=== PATIENT | male | born 1990 | race Caucasian/White ===

== ENCOUNTER 2018-05-29 05:05 | Emergency (ER) | payer OTHER ==
[2018-05-29] MEDS ORDERED: ONDANSETRON 4 MG (ODT) TAB ONE (05:33)
--- NOTE | 2018-05-29 05:54 | EDPHYS ---
Physician Documentation [facility] Name: Eliu Barrett Age: 27 yrs Sex: Male : 1990 Arrival Date: 05/29/2018 Time: 05:06 Bed 18 Private MD: ED Physician Javier Ruffin HPI: 05/29 05:51 This 27 yrs old Male presents to ER via EMS with complaints of gs Nausea/Vomiting/Diarrhea. 05:51 The patient presents to the emergency department with nausea, diarrhea. Onset: The gs symptoms/episode began/occurred this morning. Possible causes: bad food exposure, possibly undercooked. The symptoms are aggravated by nothing. The symptoms are alleviated by nothing. Associated signs and symptoms: Pertinent negatives: abdominal pain, fever, GI bleeding. Severity of symptoms: At their worst the symptoms were severe in the emergency department the symptoms have improved markedly. The patient has experienced similar episodes in the past, a few times. The patient has not recently seen a physician. Historical: - Allergies: 05:07 No Known Allergies; fc - Home Meds: 05:07 None [Active]; fc - PMHx: 05:07 Hypertension; fc - PSHx: 05:07 None; fc - Immunization history:: Last tetanus immunization: < 10 years ago Flu vaccine is not up to date. - Social history:: Smoking status: Patient/guardian denies using tobacco, Patient uses alcohol, occasionally. Patient/guardian denies using street drugs. - Ebola Screening: : Patient negative for fever greater than or equal to 101.5 degrees Fahrenheit, and additional compatible Ebola Virus Disease symptoms Patient denies exposure to infectious person Patient denies travel to an Ebola-affected area in the 21 days before illness onset. ROS: 05:51 Neuro: Positive for near syncope. gs 05:51 All other systems are negative. Exam: 05:51 Head/Face: Normocephalic, atraumatic. Eyes: Pupils equal round and reactive to light, gs extra-ocular motions intact. Lids and lashes normal. Conjunctiva and sclera are non-icteric and not injected. Cornea within normal limits. Periorbital areas with no swelling, redness, or edema. ENT: Nares patent. No nasal discharge, no septal abnormalities noted. Tympanic membranes are normal and external auditory canals are clear. Oropharynx with no redness, swelling, or masses, exudates, or evidence of obstruction, uvula midline. Mucous membranes moist. Neck: Trachea midline, no thyromegaly or masses palpated, and no cervical lymphadenopathy. Supple, full range of motion without nuchal rigidity, or vertebral point tenderness. No Meningismus. Chest/axilla: Normal chest wall appearance and motion. Nontender with no deformity. No lesions are appreciated. Cardiovascular: Regular rate and rhythm with a normal S1 and S2. No gallops, murmurs, or rubs. Normal PMI, no JVD. No pulse deficits. Respiratory: Lungs have equal breath sounds bilaterally, clear to auscultation and percussion. No rales, rhonchi or wheezes noted. No increased work of breathing, no retractions or nasal flaring. Abdomen/GI: Soft, non-tender, with normal bowel sounds. No distension or tympany. No guarding or rebound. No evidence of tenderness throughout. Back: No spinal tenderness. No costovertebral tenderness. Full range of motion. Skin: Warm, dry with normal turgor. Normal color with no rashes, no lesions, and no evidence of cellulitis. MS/ Extremity: Pulses equal, no cyanosis. Neurovascular intact. Full, normal range of motion. Neuro: Awake and alert, GCS 15, oriented to person, place, time, and situation. Cranial nerves II-XII grossly intact. Motor strength 5/5 in all extremities. Sensory grossly intact. Cerebellar exam normal. Normal gait. 05:51 Constitutional: The patient appears alert, awake. Vital Signs: 05:07 BP 158 / 89; Pulse 58; Resp 18; Temp 98.5(O); Pulse Ox 98% on R/A; Weight 104.33 kg fc (R); Height 6 ft. 0 in. (182.88 cm) (R); Pain 1/10; 05:45 BP 134 / 87; Pulse 57; Resp 16; Pulse Ox 100% on R/A; jb4 05:07 Body Mass Index 31.19 (104.33 kg, 182.88 cm) MDM: 05:48 Patient medically screened. 05:51 Differential diagnosis: viral gastroenteritis, gastroenteritis. Data reviewed: vital gs signs, nurses notes. Response to treatment: the patient's symptoms have markedly improved after treatment, patient is well hydrated. and as a result, I will discharge patient. Administered Medications: 05:20 Drug: Zofran 4 mg Route: PO; jb4 06:03 Follow up: Response: No adverse reaction; Nausea is decreased jb4 Disposition: 05/29/18 05:53 Discharged to Home. Impression: Diarrhea, unspecified. - Condition is Stable. - Discharge Instructions: Diarrhea, Adult. - Prescriptions for Zofran 4 mg Oral Tablet - take 1 tablet by ORAL route every 12 hours As needed; 6 tablet. - Medication Reconciliation Form, Thank You Letter, Antibiotic Education, Prescription Opioid Use form. - Follow up: Private Physician; When: 2 - 3 days; Reason: Re-evaluation by your physician. Signatures: Linsey Sam RN RN Arnie Bradley RN RN jb4 Javier Ruffin MD MD gs Corrections: (The following items were deleted from the chart) 06:03 05:53 05/29/2018 05:53 Discharged to Home. Impression: Diarrhea, unspecified. Condition jb4 is Stable. Forms are Medication Reconciliation Form, Thank You Letter, Antibiotic Education, Prescription Opioid Use. Follow up: Private Physician; When: 2 - 3 days; Reason: Re-evaluation by your physician. gs
--- NOTE | 2018-05-29 05:54 | ER ---
Nurse's Notes [facility] Name: Eliu Barrett Age: 27 yrs Sex: Male : 1990 Arrival Date: 05/29/2018 Time: 05:06 Bed 18 Private MD: Diagnosis: Diarrhea, unspecified Presentation: 05/29 05:06 Presenting complaint: Patient states: that he ate some ibarra and then soon after started fc to have nausea, vomiting and diarrhea. Then felt as if he was going to pass out. Thinks he may have food poisoning. Transition of care: patient was not received from another setting of care. Onset of symptoms was May 29, 2018 at 03:45. Risk Assessment: Do you want to hurt yourself or someone else? Patient reports no desire to harm self or others. Initial Sepsis Screen: Does the patient meet any 2 criteria? No. Patient's initial sepsis screen is negative. Does the patient have a suspected source of infection? No. Patient's initial sepsis screen is negative. Care prior to arrival: None. 05:06 Method Of Arrival: EMS: [facility] 05:06 Acuity: MIGUEL ANGEL 3 fc Historical: - Allergies: 05:07 No Known Allergies; fc - Home Meds: 05:07 None [Active]; fc - PMHx: 05:07 Hypertension; fc - PSHx: 05:07 None; fc - Immunization history:: Last tetanus immunization: < 10 years ago Flu vaccine is not up to date. - Social history:: Smoking status: Patient/guardian denies using tobacco, Patient uses alcohol, occasionally. Patient/guardian denies using street drugs. - Ebola Screening: : Patient negative for fever greater than or equal to 101.5 degrees Fahrenheit, and additional compatible Ebola Virus Disease symptoms Patient denies exposure to infectious person Patient denies travel to an Ebola-affected area in the 21 days before illness onset. Screenin:08 Abuse screen: Denies threats or abuse. Nutritional screening: No deficits noted. fc Tuberculosis screening: No symptoms or risk factors identified. Fall Risk None identified. Assessment: 05:09 General: Appears in no apparent distress. comfortable, Behavior is calm, cooperative, jb4 appropriate for age. Pain: Denies pain. Neuro: Level of Consciousness is awake, alert, obeys commands, Oriented to person, place, time, situation. Cardiovascular: Patient's skin is warm and dry. Respiratory: Airway is patent Respiratory effort is even, unlabored, Respiratory pattern is regular, symmetrical. GI: Abdomen is flat, Bowel sounds present X 4 quads. Abd is soft and non tender X 4 quads. Reports diarrhea, nausea. : No signs and/or symptoms were reported regarding the genitourinary system. EENT: No signs and/or symptoms were reported regarding the EENT system. Derm: Skin is intact, Skin is pink, warm \T\ dry. Musculoskeletal: Circulation, motion, and sensation intact. Range of motion: intact in all extremities. 06:00 Reassessment: Patient appears in no apparent distress at this time. Patient and/or jb4 family updated on plan of care and expected duration. Pain level reassessed. Patient is alert, oriented x 3, equal unlabored respirations, skin warm/dry/pink. Vital Signs: 05:07 BP 158 / 89; Pulse 58; Resp 18; Temp 98.5(O); Pulse Ox 98% on R/A; Weight 104.33 kg (R); Height 6 ft. 0 in. (182.88 cm) (R); Pain 1/10; 05:45 BP 134 / 87; Pulse 57; Resp 16; Pulse Ox 100% on R/A; jb4 05:07 Body Mass Index 31.19 (104.33 kg, 182.88 cm) ED Course: 05:06 Patient arrived in ED. 05:07 Triage completed. 05:07 Arm band placed on Patient placed in an exam room, on a stretcher. 05:08 Arnie Bradley RN is Primary Nurse. 4 05:08 Patient has correct armband on for positive identification. Bed in low position. Call light in reach. Side rails up X 1. 05:08 No provider procedures requiring assistance completed. 05:09 environmental monitoring specialist on. Pulse ox on. NIBP on. jb4 05:42 Javier Ruffin MD is Attending Physician. 05:45 Patient did not have IV access during this emergency room visit. jb4 Administered Medications: 05:20 Drug: Zofran 4 mg Route: PO; jb4 06:03 Follow up: Response: No adverse reaction; Nausea is decreased jb4 Outcome: 05:53 Discharge ordered by . 06:02 Discharged to home ambulatory. jb4 06:02 Condition: stable 06:02 Discharge instructions given to patient, Instructed on discharge instructions, follow up and referral plans. medication usage, Demonstrated understanding of instructions, follow-up care, medications, Prescriptions given X 1. 06:03 Patient left the ED. jb4 Signatures: Linsey Sam RN RN Arnie Bradley RN RN jb4 Javier Ruffin MD MD Corrections: (The following items were deleted from the chart) 05:26 05:09 GI: Abdomen is flat, Bowel sounds present X 4 quads. Abd is soft and non tender X jb4 4 quads. jb4
== END 2018-05-29 06:03 | disposition home or self-care (01) ==
LOC: ER 05:05
DX: R11.2 Nausea with vomiting, unspecified (principal); R19.7 Diarrhea, unspecified; I10 Essential (primary) hypertension
CPT/HCPCS: 99284

== ENCOUNTER 2018-12-02 04:04 | Observation (INO) | payer OTHER ==
[2018-12-02] MEDS ORDERED: KETOROLAC 30 MG/ML INJ ONE (04:40)
[2018-12-02 04:46] LABS: Absolute Lymphocytes (CBC) 2.4 K/uL (0.7-4.9); Basophils % 0.4 % (0-1.3); Hematocrit 45.8 % (39.6-49.0); MPV 6.7 fL (7.6-11.3); RBC Red Blood Cell Count 5.41 M/uL (4.33-5.43)
[2018-12-02 04:59] LABS: ALT/SGPT 41 U/L (12-78); AST/SGOT 16 U/L (15-37); Albumin 4.2 g/dL (3.4-5.0); Alkaline Phosphatase 53 U/L (45-117); BUN Blood Urea Nitrogen 13 mg/dL (7-18); Bicarbonate 26 mmol/L (21-32); Bilirubin Direct < 0.1 mg/dL (0-0.2); Bilirubin Total 0.3 mg/dL (0.2-1.0); Glucose Level 102 mg/dL (74-106); Lipase 115 U/L (73-393); Protein, Total 7.3 g/dL (6.4-8.2); Sodium Level 142 mmol/L (136-145)
--- NOTE | 2018-12-02 05:37 | ER ---
Nurse's Notes [facility] Name: Eliu Barrett Age: 28 yrs Sex: Male : 1990 Arrival Date: 12/02/2018 Time: 04:07 Bed 20 Private MD: Diagnosis: Acute appendicitis Presentation: 12/02 04:24 Presenting complaint: Patient states: he started having severe abdominal pain this bb morning at approx 0300 the pain has worsened now 6/10 pain was initially towards right upper quadrant but now is diffuse pt is nauseous but denies vomiting or diarrhea. Transition of care: patient was not received from another setting of care. Onset of symptoms was December 02, 2018 at 03:00. Risk Assessment: Do you want to hurt yourself or someone else? Patient reports no desire to harm self or others. Initial Sepsis Screen: Does the patient meet any 2 criteria? No. Patient's initial sepsis screen is negative. Does the patient have a suspected source of infection? No. Patient's initial sepsis screen is negative. Care prior to arrival: None. 04:24 Method Of Arrival: Ambulatory bb 04:24 Acuity: MIGUEL ANGEL 3 bb Historical: - Allergies: 04:26 No Known Allergies; bb - Home Meds: 04:26 None [Active]; bb - PMHx: 04:26 Hypertension; bb - PSHx: 04:26 None; bb - Immunization history:: Adult Immunizations up to date. - Social history:: Smoking status: Patient/guardian denies using tobacco, Patient uses alcohol, occasionally. - Ebola Screening: : No symptoms or risks identified at this time. Screenin:27 Abuse screen: Denies threats or abuse. Nutritional screening: No deficits noted. jd3 Tuberculosis screening: No symptoms or risk factors identified. Fall Risk Ambulatory Aid- None/Bed Rest/Nurse Assist (0 pts). Gait- Normal/Bed Rest/Wheelchair (0 pts) Mental Status- Oriented to own ability (0 pts). Total [place] Fall Scale indicates No Risk (0-24 pts). Assessment: 04:25 General: Appears in no apparent distress. uncomfortable, Behavior is calm, cooperative, jd3 appropriate for age. Pain: Complains of pain in right upper quadrant, right lower quadrant and left lower quadrant Quality of pain is described as sharp, tender. Neuro: Level of Consciousness is awake, alert, obeys commands, Oriented to person, place, time, situation. Cardiovascular: Capillary refill < 3 seconds Patient's skin is warm and dry. Respiratory: Airway is patent Respiratory effort is even, unlabored, Respiratory pattern is regular, symmetrical. GI: Abdomen is round non-distended, Bowel sounds present X 4 quads. Abd is soft X 4 quads Abdomen is tender to palpation in right upper quadrant, right lower quadrant and left lower quadrant Reports nausea, Patient currently denies constipation, diarrhea, vomiting. : No signs and/or symptoms were reported regarding the genitourinary system. EENT: No signs and/or symptoms were reported regarding the EENT system. Derm: Skin is intact, Skin is dry, Skin is normal, Skin temperature is warm. Musculoskeletal: Circulation, motion, and sensation intact. Range of motion: intact in all extremities. 05:31 Reassessment: Patient appears in no apparent distress at this time. Patient and/or jd3 family updated on plan of care and expected duration. Pain level reassessed. Patient is alert, oriented x 3, equal unlabored respirations, skin warm/dry/pink. Patient denies pain at this time. Patient states feeling better. 06:04 Reassessment: Patient appears in no apparent distress at this time. Patient and/or jd3 family updated on plan of care and expected duration. Pain level reassessed. Patient is alert, oriented x 3, equal unlabored respirations, skin warm/dry/pink. pt informed and reported understanding of need for hospitalization. report called to Surinder WILKINS. Vital Signs: 04:26 BP 162 / 89; Pulse 97; Resp 16 S; Temp 98.8(O); Pulse Ox 98% on R/A; Weight 108.86 kg bb (R); Height 5 ft. 11 in. (180.34 cm) (R); Pain 6/10; 05:30 BP 124 / 63; Pulse 83; Resp 16 S; Pulse Ox 97% on R/A; Pain 0/10; jd3 06:05 BP 132 / 68; Pulse 70; Resp 17 S; Pulse Ox 96% on R/A; Pain 1/10; jd3 04:26 Body Mass Index 33.47 (108.86 kg, 180.34 cm) ED Course: 04:07 Patient arrived in ED. ds1 04:25 Javier Ruffin MD is Attending Physician. 04:25 Landen Ward RN is Primary Nurse. jd3 04:25 Triage completed. bb 04:26 Arm band placed on Patient placed in an exam room, on a stretcher, on pulse oximetry. bb 04:28 Patient has correct armband on for positive identification. Bed in low position. Call jd3 light in reach. Side rails up X 1. Adult w/ patient. 04:39 Inserted saline lock: 20 gauge in right antecubital area, using aseptic technique. jd3 Blood collected. 04:57 CT Stone Protocol In Process Unspecified. EDCT 05:36 Arnie Paula MD is Hospitalizing Provider. 06:04 No provider procedures requiring assistance completed. Patient admitted, IV remains in jd3 place. Administered Medications: 04:48 Drug: TORadol - Ketorolac 15 mg Route: IVP; Site: right antecubital; jd3 05:31 Follow up: Response: No adverse reaction; Pain is decreased jd3 05:51 Drug: cefOXitin 1 grams Route: IVPB; Infused Over: 30 mins; Site: right antecubital; jd3 06:12 Follow up: Response: No adverse reaction; IV Status: Completed infusion; IV Intake: [id number] 05:51 Drug: NS 0.9% 1000 ml Route: IV; Rate: 150 ml/hr; Site: right antecubital; jd3 06:13 Follow up: Response: No adverse reaction; IV Status: Infusion continued upon admission jd3 Intake: 06:12 IV: 50ml; Total: 50ml. jd3 Outcome: 05:36 Decision to Hospitalize by Provider. 06:05 Admitted to Med/surg accompanied by nurse, via wheelchair, room 214, with chart, Report jd3 called to Surinder WILKINS 06:05 Condition: stable 06:05 Instructed on the need for admit, Demonstrated understanding of instructions. 06:14 Patient left the ED. jd3 Signatures: Dispatcher [facility] Nadia Rausch ds1 Lyudmila Souza, RN RN bb Javier Ruffin MD MD gs Davies, Jonathon, FRANKY RN jd3
--- NOTE | 2018-12-02 05:38 | EDPHYS ---
Physician Documentation [facility] Name: Eliu Barrett Age: 28 yrs Sex: Male : 1990 Arrival Date: 12/02/2018 Time: 04:07 Bed 20 Private MD: ED Physician Javier Ruffin HPI: 12/02 05:34 This 28 yrs old Male presents to ER via Ambulatory with complaints of gs Abdominal Pain. 05:34 The patient presents with abdominal pain in the lower abdomen. Onset: The gs symptoms/episode began/occurred yesterday, at 21:00. The symptoms do not radiate. Associated signs and symptoms: Pertinent positives: nausea. The symptoms are described as sharp. Modifying factors: The symptoms are alleviated by nothing, the symptoms are aggravated by nothing. Severity of pain: At its worst the pain was moderate in the emergency department the pain is unchanged. The patient has not experienced similar symptoms in the past. Historical: - Allergies: 04:26 No Known Allergies; bb - Home Meds: 04:26 None [Active]; bb - PMHx: 04:26 Hypertension; bb - PSHx: 04:26 None; bb - Immunization history:: Adult Immunizations up to date. - Social history:: Smoking status: Patient/guardian denies using tobacco, Patient uses alcohol, occasionally. - Ebola Screening: : No symptoms or risks identified at this time. ROS: 05:34 All other systems are negative. gs Exam: 05:34 Head/Face: Normocephalic, atraumatic. Eyes: Pupils equal round and reactive to light, gs extra-ocular motions intact. Lids and lashes normal. Conjunctiva and sclera are non-icteric and not injected. Cornea within normal limits. Periorbital areas with no swelling, redness, or edema. ENT: Nares patent. No nasal discharge, no septal abnormalities noted. Tympanic membranes are normal and external auditory canals are clear. Oropharynx with no redness, swelling, or masses, exudates, or evidence of obstruction, uvula midline. Mucous membranes moist. Neck: Trachea midline, no thyromegaly or masses palpated, and no cervical lymphadenopathy. Supple, full range of motion without nuchal rigidity, or vertebral point tenderness. No Meningismus. Chest/axilla: Normal chest wall appearance and motion. Nontender with no deformity. No lesions are appreciated. Cardiovascular: Regular rate and rhythm with a normal S1 and S2. No gallops, murmurs, or rubs. Normal PMI, no JVD. No pulse deficits. Respiratory: Lungs have equal breath sounds bilaterally, clear to auscultation and percussion. No rales, rhonchi or wheezes noted. No increased work of breathing, no retractions or nasal flaring. Back: No spinal tenderness. No costovertebral tenderness. Full range of motion. Skin: Warm, dry with normal turgor. Normal color with no rashes, no lesions, and no evidence of cellulitis. MS/ Extremity: Pulses equal, no cyanosis. Neurovascular intact. Full, normal range of motion. Neuro: Awake and alert, GCS 15, oriented to person, place, time, and situation. Cranial nerves II-XII grossly intact. Motor strength 5/5 in all extremities. Sensory grossly intact. Cerebellar exam normal. Normal gait. 05:34 Constitutional: The patient appears alert, awake. 05:34 Abdomen/GI: Palpation: moderate abdominal tenderness, in the right lower quadrant. Vital Signs: 04:26 BP 162 / 89; Pulse 97; Resp 16 S; Temp 98.8(O); Pulse Ox 98% on R/A; Weight 108.86 kg bb (R); Height 5 ft. 11 in. (180.34 cm) (R); Pain 6/10; 05:30 BP 124 / 63; Pulse 83; Resp 16 S; Pulse Ox 97% on R/A; Pain 0/10; jd3 06:05 BP 132 / 68; Pulse 70; Resp 17 S; Pulse Ox 96% on R/A; Pain 1/10; jd3 04:26 Body Mass Index 33.47 (108.86 kg, 180.34 cm) bb MDM: 04:25 Patient medically screened. 05:34 Differential diagnosis: appendicitis, bowel obstruction, non-specific abd pain. Data gs reviewed: vital signs, nurses notes, lab test result(s). Counseling: I had a detailed discussion with the patient and/or guardian regarding: the historical points, exam findings, and any diagnostic results supporting the discharge/admit diagnosis, the need for further work-up and treatment in the hospital. 12/02 04:26 Order name: Basic Metabolic Panel; Complete Time: 05:35 gs 12/02 04:26 Order name: CBC with Diff; Complete Time: 05:35 12/02 04:26 Order name: Hepatic Function; Complete Time: 05:35 12/02 04:26 Order name: Lipase; Complete Time: 05:35 12/02 04:26 Order name: Urine Microscopic Only 12/02 04:26 Order name: CT Stone Protocol 12/02 04:26 Order name: IV Saline Lock; Complete Time: 04:37 12/02 04:26 Order name: Labs collected and sent; Complete Time: 04:37 12/02 05:37 Order name: NPO; Complete Time: 05:51 12/02 05:55 Order name: NPO EDMS Administered Medications: 04:48 Drug: TORadol - Ketorolac 15 mg Route: IVP; Site: right antecubital; jd3 05:31 Follow up: Response: No adverse reaction; Pain is decreased jd3 05:51 Drug: cefOXitin 1 grams Route: IVPB; Infused Over: 30 mins; Site: right antecubital; jd3 06:12 Follow up: Response: No adverse reaction; IV Status: Completed infusion; IV Intake: [id number] 05:51 Drug: NS 0.9% 1000 ml Route: IV; Rate: 150 ml/hr; Site: right antecubital; jd3 06:13 Follow up: Response: No adverse reaction; IV Status: Infusion continued upon admission jd3 Disposition: 12/02/18 05:36 Hospitalization ordered by Arnie Paula for Inpatient Admission. Preliminary diagnosis is Acute appendicitis. - Bed requested for Telemetry/MedSurg (Inpatient). - Status is Inpatient Admission. jd3 - Condition is Stable. - Problem is new. - Symptoms are unchanged. UTI on Admission? No Signatures: Dispatcher [employer] [facility] Myranda Ashby RN RN mw Ballard, Brenda, RN RN bb Starr, Gregory, MD MD gs Davies, Jonathon, RN RN jd3 Corrections: (The following items were deleted from the chart) 05:57 05:36 Hospitalization Ordered by Arnie Paula MD for Inpatient Admission. Preliminary diagnosis is Acute appendicitis. Bed requested for Telemetry/MedSurg (Inpatient). Status is Inpatient Admission. Condition is Stable. Problem is new. Symptoms are unchanged. UTI on Admission? No. gs 06:14 05:57 12/02/2018 05:36 Hospitalization Ordered by Arnie Paula MD for Inpatient jd3 Admission. Preliminary diagnosis is Acute appendicitis. Bed requested for Telemetry/MedSurg (Inpatient). Status is Inpatient Admission. Condition is Stable. Problem is new. Symptoms are unchanged. UTI on Admission? No. mw
[2018-12-02] MEDS ORDERED: NA CHLORIDE 0.9% 1,000 ML ONE (05:41)
[2018-12-02] MEDS ORDERED: CEFOXITIN SODIUM 1 GM/VIAL ONE (05:41)
[2018-12-02] MEDS ORDERED: NA CHLORIDE 0.9% 50 ML IV ONE (05:41)
[2018-12-02] MEDS ORDERED: CEFOXITIN SODIUM 1 GM/VIAL IVPB SCH (06:00)
[2018-12-02] MEDS: D5 0.45 NS 1,000 ML IV SCH ×3 (08:20→22:10)
--- NOTE | 2018-12-02 09:43 | RAD REPORT ---
EXAM DESCRIPTION: CT - Stone Protocol - 12/02/2018 4:55 am CLINICAL HISTORY: Abdominal pain. COMPARISON: None. TECHNIQUE: Axial unenhanced CT imaging of the abdomen and pelvis performed. Reformatted coronal and sagittal images reviewed. A dose reduction technique was utilized with automated exposure control according to patient size. FINDINGS: Heart is normal in size. Clear lung bases. Liver is enlarged to approximately 20 cm. Normal attenuation. No mass or biliary dilatation. Normal g allbladder, spleen, pancreas, adrenal glands, and kidneys. Coronary aorta and inferior vena cava. No adenopathy. Normal stomach. Small bowel loops appear normal. The appendix is dilated to 1.9 cm in the right lower quadrant and along the right hemipelvis with pericholecystic edema. Normal colon. There are a few enlarged right lower quadrant lymph nodes up to 1.3 cm in short axis. No free air. No ascites. The bladder and prostate appear normal. No pelvic free fluid. There is mild degenerative changes in the lower thoracic spine. No subluxation. Intact bony pelvis. N ormal hips. IMPRESSION: 1. Acute appendicitis without evidence of abscess or free air. Mild associated adenopath y. 2. Hepatomegaly. Electronically signed by: Daisy Tai DO 12/02/2018 5:16 AM CDT Due to temporary technical issues with the PACS/Fluency reporting system, reports are being signed by the in house radiologist as a courtesy to ensure prompt reporting. The interpreting radiologist is f ully responsible for the content of the report.
[2018-12-02] MEDS ORDERED: ONDANSETRON 4 MG/2 ML VIAL IV PRN (09:59)
[2018-12-02] MEDS ORDERED: MORPHINE 4 MG/ML SYR IV PRN (09:59)
[2018-12-02 10:41] VITALS: BMI 33.5
[2018-12-02] MEDS ORDERED: CEFOXITIN/SWI 1gm 1 GM/10 ML SYR IV SCH ×2 (12:00→17:00)
[2018-12-02] MEDS ORDERED: Ringers Lactate 1,000 ML IV ONE ×2 (13:16→14:43)
[2018-12-02] MEDS ORDERED: FENTANYL CITR 100 MCG/2 ML ONE ×2 (13:21→14:50)
[2018-12-02] MEDS ORDERED: PROPOFOL 200 MG/20 ML VIAL IV ONE (13:22)
[2018-12-02] MEDS ORDERED: MIDAZOLAM HCL 2 MG/2 ML INJ ONE (13:22)
[2018-12-02] MEDS ORDERED: LIDOCAINE 1% MPF 5 ML VIAL ONE (13:22)
[2018-12-02] MEDS ORDERED: ONDANSETRON 4 MG/2 ML VIAL ONE (13:25)
[2018-12-02] MEDS ORDERED: ROCURONIUM 50 MG/5 ML VIAL IV ONE ×2 (13:27→14:40)
[2018-12-02] MEDS ORDERED: GLYCOPYRROLATE 0.2 MG/ML SYR ONE (14:53)
[2018-12-02] MEDS ORDERED: NEOSTIGMINE 1 MG/ML -10 ML VIAL ONE (14:54)
--- NOTE | 2018-12-02 15:06 | P.OP ---
Preoperative diagnosis: Acute abdomen with appendicitis Postoperative diagnosis: Acute abdomen with appendicitis Primary procedure: Laparoscopic appendectomy Anesthesia: General Estimated blood loss: Less than 10 cc Specimen: 1 appendix Operative Technique: The patient brought the operating room placed supine on the table. After the induction of adequate general endotracheal anesthesia, the area the abdomen is prepped with a DuraPrep solution, and he was draped in usual aseptic manner. A subumbilical incision was made. This brought down through the skin and subcutaneous tissue. The Visiport was used to enter the peritoneal cavity and created pneumoperitoneum to approximately 12 mm of mercury. Under direct vision a 5 mm trocar was placed in the right upper quadrant and another in the lower midline the patient was now placed in a marked Trendelenburg and rolled to the left. We could visualize right lower quadrant. We could see an inflammatory process at risk contained by the omentum. Dementia wheeze gentle the omentum was gently peeled off this area revealing an acutely inflamed appendix. It was identified for its full length. At the appendix junction with the cecum the appendix was elevated. A window was made into the mesentery of the appendix. We were now able to pass a linear Stapler after converting the 10 to a 12 mm trocar at the [facility]. The linear Stapler was placed across the base the appendix and fired. A vascular reload was now placed across the base of the mesentery to the appendix. The cyst was fired as well. O suture lines were inspected adequate hemostasis was ensured. This pus was now placed into an Endo-Catch, and brought out through the umbilical trocar site. It was inspected to ensure adequate hemostasis. The right lower quadrant was lightly irrigated until the effluent was clear. The patient was returned to the neutral position on the OR table. The umbilical trocar site was approximated using the Endo Close an absorbable suture. 2 surgeons were placed.. A secure closure having been obtained, the pneumoperitoneum was now collapsed after having done a TA PP blocked of the anterior abdominal wall. At this point the pneumoperitoneum was now collapsed, the trocars removed, the sutures tied. Lexii were applied to the skin. He was in a stable condition when sent to the recovery room. Needle sponge instrument count were correct. Complications: None Transferred to: Recovery Room Condition: Good
--- NOTE | 2018-12-02 15:08 | P.HP ---
Date of Service: 12/02/18 PC: This 28-year-old male presents emergency room with severe right lower quadrant abdominal pain for diagnosis and treatment. HPC: These is been experiencing right lower abdominal pain for the hr prior to his presentation to the ER. Described as severe. Hurt when he walked. PMH: Negative PSHx: Negative SOC: No known allergies SYS REVIEW: No cough, wheeze, shortness of breath. No chest pain or palpitations. Denies any urinary complaints O/E actual room awake alert stable obviously uncomfortable HEENT: Not jaundiced Chest: Chest movement equal bilaterally ABD: Tender with guarding in the right lower quadrant LOCO: Intact DATA: Elevated white cell count, CT scan supports clinical diagnosis of acute abdomen IMPRESSION: Acute abdomen with appendicitis PLAN: I will take to the operating room for laparoscopic appendectomy. The risks of this procedure have been discussed. The possibility of bleeding, infection, injury to bowel and surrounding structures were outlined. The possible need for an open and/or further surgeries and procedures was described. Abscess formation and other complications were explained. He understands and wants us to proceed.
[2018-12-02] MEDS ORDERED: MEPERIDINE HCL 25 MG/0.5 ML ONE (15:09)
[2018-12-02] MEDS: HYDROMORPHONE HCL 1 MG/ML INJ ONE ×2 (15:15→15:20)
[2018-12-02] MEDS ORDERED: HYDROMORPHONE HCL 1 MG/ML INJ ONE (15:34)
[2018-12-02] MEDS: HYDROCODONE/APAP 7.5/325 MG TAB PO PRN (18:07)
[2018-12-02 22:20] VITALS: O2SAT 94
[2018-12-03] MEDS: HYDROCODONE/APAP 7.5/325 MG TAB PO PRN ×3 (00:58→15:02)
[2018-12-03] MEDS: CEFOXITIN/SWI 1gm 1 GM/10 ML SYR IVP SCH ×2 (00:58→10:16)
[2018-12-03] MEDS: D5 0.45 NS 1,000 ML IV SCH ×2 (05:39→14:00)
[2018-12-03 14:50] VITALS: BP 129/60; TEMP 97.6
== END 2018-12-03 15:13 | disposition home or self-care (01) ==
LOC: ER 04:04 → ERHOLD 05:57 → INTOOBSV 05:57 → 2ND 06:05
PROVIDERS: ADMIT Surgery; ATTEND Surgery
PROC: 0DTJ4ZZ Resection of Appendix, Percutaneous Endoscopic Approach (ICD-10-PCS; principal; 2018-12-02 14:00)
DX: K35.80 Unspecified acute appendicitis (principal)
CPT/HCPCS: 36415; 74176; 76377; 80048; 80076; 83690; 85025; 88304; 96365; 96375; 99285; G0378; J0694; J1170; J2175; J2250; J2405; J2704; J2710; J3010; J7030

== ENCOUNTER 2019-09-10 06:32 | Emergency (ER) | payer OTHER ==
[2019-09-10 07:21] LABS: Blood Gas Oxyhemoglobin 96.4 % (94-97); Blood O2 Saturation 98.4 % (92-98.5)
[2019-09-10] MEDS ORDERED: LORAZEPAM 1 MG TABLET ONE ×2 (07:23→07:25)
--- NOTE | 2019-09-10 07:44 | ER ---
Nurse's Notes [facility] Name: Eliu Barrett Age: 28 yrs Sex: Male : 1990 Arrival Date: 09/10/2019 Time: 06:35 Bed 5 Private MD: Diagnosis: Hyperventilation;Anxiety disorder, unspecified Presentation: 09/09 06:51 Chief complaint: Patient states: Feeling short of breath the last 3-4 days, states lp1 feeling hands tingling, states difficult to take a deep breath. Coronavirus screen: Proceed with normal triage. Ebola Screen: No symptoms or risks identified at this time. Initial Sepsis Screen: Does the patient meet any 2 criteria? No. Patient's initial sepsis screen is negative. Does the patient have a suspected source of infection? No. Patient's initial sepsis screen is negative. Risk Assessment: Do you want to hurt yourself or someone else? Patient reports no desire to harm self or others. Onset of symptoms was September 10, 2019. 06:51 Method Of Arrival: Ambulatory lp1 06:51 Acuity: MIGUEL ANGEL 3 lp1 Historical: - Allergies: 06:53 No Known Allergies; lp1 - Home Meds: 06:53 None [Active]; lp1 - PMHx: 06:53 None; lp1 - PSHx: 06:53 Appendectomy; lp1 - Immunization history:: Adult Immunizations up to date. - Social history:: Smoking status: Patient denies any tobacco usage or history of. Screenin:54 Abuse screen: Denies threats or abuse. Denies injuries from another. Nutritional lp1 screening: No deficits noted. Tuberculosis screening: No symptoms or risk factors identified. Fall Risk None identified. Assessment: 07:15 General: Appears in no apparent distress. comfortable, well groomed, Behavior is ph cooperative, appropriate for age, anxious, Denies fever, feeling ill. Pain: Complains of pain in anterior aspect of right upper chest Quality of pain is described as sharp, Is intermittent. Neuro: Level of Consciousness is awake, alert, obeys commands, Oriented to person, place, time, situation. Neuro: Reports paresthesias in right hand, left hand and mouth. Cardiovascular: Reports chest pain, lightheadedness, Capillary refill < 3 seconds in bilateral fingers Rhythm is regular Chest pain quality is sharp, stabbing, is located in right anterior chest wall denies at this time but reports intermittent chest pain over the "last few days". Respiratory: Reports shortness of breath labored breathing Airway is patent Respiratory effort is even, unlabored, Respiratory pattern is regular, symmetrical, Breath sounds are clear bilaterally. GI: No signs and/or symptoms were reported involving the gastrointestinal system. Derm: Skin is intact, is healthy with good turgor, Skin is pink, warm \\T\\ dry. Musculoskeletal: Circulation, motion, and sensation intact. Range of motion: intact in all extremities. 08:05 Reassessment: Patient appears in no apparent distress at this time. Patient and/or ph family updated on plan of care and expected duration. Pain level reassessed. Patient is alert, oriented x 3, equal unlabored respirations, skin warm/dry/pink. Pt reports feeling better after PO medications, instructed to follow up w/ PCP for further care, d/c home. Vital Signs: 06:51 BP 139 / 87; Pulse 66; Resp 18; Temp 98(TE); Pulse Ox 100% on R/A; Weight 104.33 kg lp1 (R); Height 6 ft. 0 in. (182.88 cm); 08:06 BP 118 / 78; Pulse 64; Resp 18; Temp 98.0; Pulse Ox 100% ; ph 06:51 Body Mass Index 31.19 (104.33 kg, 182.88 cm) lp1 ED Course: 06:35 Patient arrived in ED. cl3 06:44 Leonela Finn [facility]C [facility]. snw 06:44 Jorge Gilmore MD is Attending Physician. snw 06:53 Triage completed. lp1 06:53 Arm band placed on. lp1 07:10 Lionel Petty RN is Primary Nurse. rr5 07:15 Patient has correct armband on for positive identification. Placed in gown. Bed in low ph position. Call light in reach. Pulse ox on. NIBP on. Door closed. Noise minimized. Warm blanket given. 08:06 No provider procedures requiring assistance completed. Patient did not have IV access ph during this emergency room visit. Administered Medications: 07:27 Drug: Ativan 1 mg Route: PO; ph 08:07 Follow up: Response: No adverse reaction; Anxiety decreased ph Outcome: 07:44 Discharge ordered by MD. cline 08:07 Discharged to home ambulatory. ph 08:07 Condition: good 08:07 Discharge instructions given to patient, Instructed on discharge instructions, follow up and referral plans. medication usage, Demonstrated understanding of instructions, follow-up care, medications, Prescriptions given X 1. 08:08 Patient left the ED. ph Signatures: Leonela Finn, LD TEACHER-C LD TEACHER-Csnw Lou Giron RN RN lp1 Ashtyn Osorio RN RN Lionel Petty RN RN rr5 Jack Cavanaugh cl3 Corrections: (The following items were deleted from the chart) 08:08 08:07 Response: No adverse reaction ph ph
--- NOTE | 2019-09-10 07:45 | EDPHYS ---
Physician Documentation [facility] Name: Eliu Barrett Age: 28 yrs Sex: Male : 1990 Arrival Date: 09/10/2019 Time: 06:35 Bed 5 Private MD: ZORAIDA Physician Jorge Gilmore HPI: 09/09 06:56 This 28 yrs old Male presents to ER via Ambulatory with complaints of snw Shortness Of Breath, Anxiety. 06:56 The patient has shortness of breath at rest. Onset: The symptoms/episode began/occurred snw 4 day(s) ago, and became persistent. Duration: The symptoms are continuous. The patient's shortness of breath is aggravated by supine position. Associated signs and symptoms: Pertinent positives: occasional tingling to hands. Severity of symptoms: At their worst the symptoms were moderate. The patient has experienced a previous episode, many years ago, s/p food poisoning. The patient has not recently seen a physician. Historical: - Allergies: 06:53 No Known Allergies; lp1 - Home Meds: 06:53 None [Active]; lp1 - PMHx: 06:53 None; lp1 - PSHx: 06:53 Appendectomy; lp1 - Immunization history:: Adult Immunizations up to date. - Social history:: Smoking status: Patient denies any tobacco usage or history of. ROS: 06:55 Constitutional: Negative for fever, chills, and weight loss, Eyes: Negative for injury, snw pain, redness, and discharge, ENT: Negative for injury, pain, and discharge, Neck: Negative for injury, pain, and swelling, Cardiovascular: Negative for chest pain, palpitations, and edema, Abdomen/GI: Negative for abdominal pain, nausea, vomiting, diarrhea, and constipation, Back: Negative for injury and pain, : Negative for injury, bleeding, discharge, and swelling, MS/Extremity: Negative for injury and deformity, Skin: Negative for injury, rash, and discoloration, Neuro: Negative for headache, weakness, numbness, tingling, and seizure. 06:55 Respiratory: Positive for shortness of breath. 06:55 Psych: Positive for anxiety. Exam: 06:54 Constitutional: This is a well developed, well nourished patient who is awake, alert, snw and in no acute distress. Head/Face: Normocephalic, atraumatic. Eyes: Pupils equal round and reactive to light, extra-ocular motions intact. Lids and lashes normal. Conjunctiva and sclera are non-icteric and not injected. Cornea within normal limits. Periorbital areas with no swelling, redness, or edema. ENT: Nares patent. No nasal discharge, no septal abnormalities noted. Tympanic membranes are normal and external auditory canals are clear. Oropharynx with no redness, swelling, or masses, exudates, or evidence of obstruction, uvula midline. Mucous membranes moist. Neck: Trachea midline, no thyromegaly or masses palpated, and no cervical lymphadenopathy. Supple, full range of motion without nuchal rigidity, or vertebral point tenderness. No Meningismus. Chest/axilla: Normal chest wall appearance and motion. Nontender with no deformity. No lesions are appreciated. Cardiovascular: Regular rate and rhythm with a normal S1 and S2. No gallops, murmurs, or rubs. Normal PMI, no JVD. No pulse deficits. Abdomen/GI: Soft, non-tender, with normal bowel sounds. No distension or tympany. No guarding or rebound. No evidence of tenderness throughout. Back: No spinal tenderness. No costovertebral tenderness. Full range of motion. Skin: Warm, dry with normal turgor. Normal color with no rashes, no lesions, and no evidence of cellulitis. MS/ Extremity: Pulses equal, no cyanosis. Neurovascular intact. Full, normal range of motion. Neuro: Awake and alert, GCS 15, oriented to person, place, time, and situation. Cranial nerves II-XII grossly intact. Motor strength 5/5 in all extremities. Sensory grossly intact. Cerebellar exam normal. Normal gait. 06:54 Respiratory: the patient does not display signs of respiratory distress, Respirations: taking frequent large breaths, anxious, Breath sounds: are clear throughout, no bronchial sounds, no wheezing. 06:54 Psych: Behavior/mood is cooperative, anxious. Vital Signs: 06:51 BP 139 / 87; Pulse 66; Resp 18; Temp 98(TE); Pulse Ox 100% on R/A; Weight 104.33 kg lp1 (R); Height 6 ft. 0 in. (182.88 cm); 08:06 BP 118 / 78; Pulse 64; Resp 18; Temp 98.0; Pulse Ox 100% ; ph 06:51 Body Mass Index 31.19 (104.33 kg, 182.88 cm) lp1 MDM: 06:50 Patient medically screened. [facility] 07:45 Data reviewed: vital signs, nurses notes. Data interpreted: Pulse oximetry: on room air snw is 100 %. Interpretation: normal. Counseling: I had a detailed discussion with the patient and/or guardian regarding: the historical points, exam findings, and any diagnostic results supporting the discharge/admit diagnosis, the presence of at least one elevated blood pressure reading (>120/80) during this emergency department visit, lab results, the need for outpatient follow up, to return to the emergency department if symptoms worsen or persist or if there are any questions or concerns that arise at home. Special discussion: Based on the patient's history, exam, and Dx evaluation, there is no indication for emergent intervention or inpatient Tx. It is understood by the patient/guardian that if the Sx's persist or worsen they need to return immediately for re-evaluation. Based on the history and exam findings, there is no indication for further emergent testing or inpatient evaluation. I discussed with the patient/guardian the need to see the primary care provider for further evaluation of the symptoms. 09/09 06:50 Order name: DENIS; Complete Time: 07:42 snw Administered Medications: 07:27 Drug: Ativan 1 mg Route: PO; ph 08:07 Follow up: Response: No adverse reaction; Anxiety decreased ph Disposition: 10:54 Co-signature as Attending Physician, Jorge Gilmore MD I agree with the assessment and [facility] plan of care. Disposition: 09/10/19 07:44 Discharged to Home. Impression: Hyperventilation, Anxiety disorder, unspecified. - Condition is Stable. - Discharge Instructions: Hyperventilation, Insomnia, Generalized Anxiety Disorder. - Work release form, Medication Reconciliation Form, Thank You Letter, Antibiotic Education, Prescription Opioid Use form. - Follow up: Emergency Department; When: As needed; Reason: Worsening of condition. Follow up: Private Physician; When: 2 - 3 days; Reason: Recheck today's complaints, Continuance of care, Re-evaluation by your physician. Signatures: Dispatcher [employer] Jorge Quezada MD MD cha Therrien, Shelly, METAL GRINDER-C METAL GRINDER-Csnw Lou Giron, RN RN lp1 Ashtyn Osorio RN RN ph Corrections: (The following items were deleted from the chart) 08:08 07:44 09/10/2019 07:44 Discharged to Home. Impression: Hyperventilation; Anxiety ph disorder, unspecified. Condition is Stable. Forms are Medication Reconciliation Form, Thank You Letter, Antibiotic Education, Prescription Opioid Use. Follow up: Emergency Department; When: As needed; Reason: Worsening of condition. Follow up: Private Physician; When: 2 - 3 days; Reason: Recheck today's complaints, Continuance of care, Re-evaluation by your physician. snw
[2019-09-10 08:13] VITALS: O2SAT 100
[2019-09-10 08:15] VITALS: BP 118/78; TEMP 98
== END 2019-09-10 08:08 | disposition home or self-care (01) ==
LOC: ER 06:32
DX: F41.9 Anxiety disorder, unspecified (principal); R06.4 Hyperventilation
CPT/HCPCS: 82805; 99283